=== PATIENT | female | born 1990 | race African-American/Black ===

== ENCOUNTER 2020-09-25 04:28 | Emergency (ER) | payer OTHER ==
[~2020-09-25 04:28] MED LIST: COLACE 100MG C100 MG PO; IBUPROFEN600 MG PO; NORCO 5-325 TA1 EACH PO; OMEPRAZOLE20 M1 PO; ZOFRAN ODT 4 MG4 MG PO
[2020-09-25 06:03] LABS: HEMOGLOBIN 9.7 gm/dl (12.3-15.3); RED BLOOD COUNT 4.6 M/UL (4.00-5.10); WHITE BLOOD COUNT 8.5 K/UL (4.5-11.0)
[2020-09-25 06:23] LABS: BUN/CREATININE RATIO 14 (0-10)
== END 2020-09-25 06:20 | disposition home or self-care (01) ==
LOC: ER1 04:28
PROVIDERS: Family Medicine
DX: R06.02 Shortness of breath (principal); R20.2 Paresthesia of skin; Z88.5 Allergy status to narcotic agent
CPT/HCPCS: 36415; 80053; 82607; 82746; 83540; 83550; 84439; 84443; 85025; 85652; 86038; 99284

== ENCOUNTER 2022-02-06 21:00 | Emergency (ER) | payer OTHER ==
[2022-02-07 00:43] LABS: HEMOGLOBIN 11.1 gm/dl (12.3-15.3); RED BLOOD COUNT 4.62 M/UL (4.00-5.10); WHITE BLOOD COUNT 6.8 K/UL (4.5-11.0)
[2022-02-07 01:10] LABS: BUN/CREATININE RATIO 21 (0-10)
== END 2022-02-07 01:55 | disposition home or self-care (01) ==
LOC: ER1 21:00
PROVIDERS: Emergency Medicine
DX: R00.2 Palpitations (principal); Z86.79 Personal history of other diseases of the circulatory system; Z88.5 Allergy status to narcotic agent; Z91.041 Radiographic dye allergy status; Z20.822 Contact with and (suspected) exposure to COVID-19
CPT/HCPCS: 0240U; 71045; 80053; 81001; 82550; 82553; 83735; 83880; 84484; 85025; 93005; 99285

== ENCOUNTER → 2022-02-22 | Outpatient (CLI) | payer OTHER | LOC: HEART CORB 08:52 | DX: R00.2 Palpitations (principal); I47.1 Supraventricular tachycardia | CPT/HCPCS: 93306 ==

== ENCOUNTER → 2022-04-12 | Outpatient (CLI) | payer OTHER | LOC: HEART 5 07:44 | DX: I47.1 Supraventricular tachycardia (principal) ==